=== PATIENT | female | born 1980 | race Two or more races ===

== ENCOUNTER 2017-06-05 17:06 | Emergency (ER) | payer OTHER ==
[~2017-06-05] VITALS: Ht 157.5 cm; Wt 64.1 kg
[2017-06-05 17:11] VITALS: BP 168/93
== END 2017-06-05 21:18 | disposition home or self-care (01) ==
LOC: ED 21:00
DX: S29.9XXA Unspecified injury of thorax, initial encounter (principal); S19.9XXA Unspecified injury of neck, initial encounter; E11.9 Type 2 diabetes mellitus without complications; V43.52XA Car driver injured in collision with other type car in traffic accident, initial encounter; Y93.89 Activity, other specified; Y92.410 Unspecified street and highway as the place of occurrence of the external cause; Y99.8 Other external cause status
CPT/HCPCS: 72072; 72125; 99284

== ENCOUNTER 2019-05-25 23:34 | Emergency (ER) | payer OTHER ==
[~2019-05-25] VITALS: Ht 160 cm; Wt 66.2 kg
[2019-05-26] MEDS ORDERED: ONDANSETRON 2MG/ML, 2ML ONE (00:15)
[2019-05-26] MEDS ORDERED: MORPHINE SULFATE 4 MG/ML, 1ML ONE (00:16)
--- NOTE | 2019-05-26 00:24 | NUR ---
pt here with daughter, pt speaks limited macedonian, has been having abd pain for 5 days. Has been taking ephedra diet pills from [place], states only took 2 5 days ago. States that she has been having N/V/D, asking po fluids, aware to remain NPO. Last po intake 1700.
--- NOTE | 2019-05-26 00:26 | NUR ---
Aware of need for urine, states went before going to triage. Side rails up times two, call hammond in reach and aware of use and to call before getting up as just rec narcotic pain meds.
[2019-05-26 00:27] LABS: BASOPHILS # (AUTO) 0.02 x10^3/uL (0-0.1); BASOPHILS % (AUTO) 0 % (0-1); EOSINOPHILS # (AUTO) 0.32 x10^3/uL (0-0.4); EOSINOPHILS % (AUTO) 4 % (1-7); LYMPHOCYTES # (AUTO) 1.71 x10^3/uL (1-3.4); LYMPHOCYTES % (AUTO) 19 % (22-44); MD NO; MEAN CORPUSCULAR HEMOGLOBIN 20.7 pg (27.0-34.8); MEAN CORPUSCULAR HGB CONC 30.3 g/dL (32.4-35.8); MEAN CORPUSCULAR VOLUME 68.2 fL (80-100); MEAN PLATELET VOLUME 8.8 fL (7.4-10.4); MONOCYTES # (AUTO) 0.79 x10^3/uL (0.2-0.8); MONOCYTES % (AUTO) 9 % (2-9); NEUTROPHILS # (AUTO) 6.03 x10^3/uL (1.8-6.8); NEUTROPHILS % (AUTO) 68 % (42-75); PLATELET COUNT 263 x10^3/uL (130-400); RED CELL DISTRIBUTION WIDTH 17.8 % (9.6-15.2)
[2019-05-26] MEDS ORDERED: MORPHINE SULFATE 4 MG/ML, 1ML IVPush ONE (00:30)
[2019-05-26] MEDS ORDERED: ONDANSETRON 2MG/ML, 2ML IVPush ONE (00:30)
[2019-05-26] MEDS ORDERED: SODIUM CHLORIDE FLUSH 10ML SYR IVF ONE (00:30)
[2019-05-26] MEDS ORDERED: KETOROLAC 30 MG/1 ML IVPush ONE (00:30)
[2019-05-26] MEDS ORDERED: SODIUM CHLORIDE 0.9% 1,000ML IVBOLUS ONE ×2 (00:30→01:30)
[2019-05-26 00:38] LABS: ALANINE AMINOTRANSFERASE 18 U/L (12-78); ALBUMIN 3.5 g/dL (3.4-5.0); ANION GAP 9 mmol/L (5-15); CALCIUM 8.9 mg/dL (8.5-10.1); CHLORIDE 110 mmol/L (98-107); CREATININE 1.79 mg/dL (0.55-1.02)
[2019-05-26 00:43] LABS: ALKALINE PHOSPHATASE 140 U/L (45-117); BILIRUBIN,TOTAL 0.4 mg/dL (0.2-1.0)
--- NOTE | 2019-05-26 00:49 | NUR ---
Pt reports moderate pain relief after medications. Await CT. Daughter remains at bedside.
[2019-05-26] MEDS ORDERED: KETOROLAC 30 MG/1 ML ONE (00:53)
--- NOTE | 2019-05-26 00:55 | NUR ---
Task rn: PT offered toradol. Refused at this time. Awaiting ct.
--- NOTE | 2019-05-26 01:07 | NUR ---
TO CT, 2ND LITRE INFUSING
[2019-05-26] MEDS ORDERED: OMNIPAQUE 350 MG/ML, 100ML BOTTLE ONE (01:16)
[2019-05-26 02:55] VITALS: BP 137/74
[2019-05-26 03:04] LABS: CULTURE INDICATED? YES; MICROSCOPIC INDICATED
[2019-05-26] MEDS ORDERED: CEFDINIR 300 MG CAPSULE ONE (03:37)
[2019-05-26] MEDS ORDERED: CEFDINIR 300 MG CAPSULE PO ONE (04:00)
--- NOTE | 2019-05-26 04:40 | NUR ---
pt d/c with d/c summary and scripts. pt verbalizes understanding of need for medications and home care instructions. pt ambulates to registration desk with steady gait for d/c home.
== END 2019-05-26 04:44 | disposition home or self-care (01) ==
LOC: ED 05-26 00:42
DX: N30.00 Acute cystitis without hematuria (principal); R11.2 Nausea with vomiting, unspecified
CPT/HCPCS: 36415; 74177; 80053; 81001; 83690; 84703; 85025; 87086; 96361; 96374; 96375; 99284; J1885; J2270; J2405; J7030; Q9967

== ENCOUNTER 2019-09-21 15:36 | Emergency (ER) | payer SELFPAY ==
[~2019-09-21] VITALS: Ht 157.5 cm; Wt 67.1 kg
--- NOTE | 2019-09-21 16:22 | NUR ---
[employer] OPERATOR: PT AMBULATORY WITH STEADY GAIT TO ROOM AT THIS TIME.
[2019-09-21] MEDS ORDERED: ONDANSETRON 2MG/ML, 2ML ONE (16:46)
--- NOTE | 2019-09-21 16:52 | NUR ---
Up to restroom to obtain UA
[2019-09-21 16:58] LABS: BASOPHILS # (AUTO) 0.02 x10^3/uL (0-0.1); BASOPHILS % (AUTO) 0 % (0-1); EOSINOPHILS # (AUTO) 0.16 x10^3/uL (0-0.4); EOSINOPHILS % (AUTO) 2 % (1-7); LYMPHOCYTES # (AUTO) 1.44 x10^3/uL (1-3.4); LYMPHOCYTES % (AUTO) 21 % (22-44); MD NO; MEAN CORPUSCULAR HEMOGLOBIN 20.8 pg (27.0-34.8); MEAN CORPUSCULAR HGB CONC 30.8 g/dL (32.4-35.8); MEAN CORPUSCULAR VOLUME 67.5 fL (80-100); MEAN PLATELET VOLUME 8.9 fL (7.4-10.4); MONOCYTES # (AUTO) 0.45 x10^3/uL (0.2-0.8); MONOCYTES % (AUTO) 7 % (2-9); NEUTROPHILS # (AUTO) 4.84 x10^3/uL (1.8-6.8); NEUTROPHILS % (AUTO) 70 % (42-75); PLATELET COUNT 376 x10^3/uL (130-400); RED BLOOD COUNT 4.16 x10^6/uL (3.82-5.3); RED CELL DISTRIBUTION WIDTH 17.1 % (9.6-15.2)
[2019-09-21] MEDS ORDERED: SODIUM CHLORIDE FLUSH 10ML SYR IVF ONE (17:00)
[2019-09-21] MEDS ORDERED: ONDANSETRON 2MG/ML, 2ML IVPush ONE (17:00)
[2019-09-21] MEDS ORDERED: SODIUM CHLORIDE 0.9% 1,000ML IVBOLUS ONE (17:00)
--- NOTE | 2019-09-21 17:00 | NUR ---
Ultrasound at bedside Clean catch us obtained-clarified need for straight cath with provider-provider want cath as patient on menses
[2019-09-21 17:07] LABS: ALANINE AMINOTRANSFERASE 50 U/L (12-78); ALBUMIN 3.1 g/dL (3.4-5.0); ANION GAP 9 mmol/L (5-15); CALCIUM 8.9 mg/dL (8.5-10.1); CHLORIDE 109 mmol/L (98-107); CREATININE 1.74 mg/dL (0.55-1.02)
[2019-09-21 17:09] LABS: ALKALINE PHOSPHATASE 180 U/L (45-117); BILIRUBIN,TOTAL 0.2 mg/dL (0.2-1.0); TOTAL PROTEIN 7.2 g/dL (6.4-8.2)
--- NOTE | 2019-09-21 17:40 | NUR ---
PIV PLACED-MEDICATED PER EMAR STRAIGHT CATH UA SENT UPDATED ON ESTIMATED POC VRI/FAMILY UTILIZED FOR TRANSLATION (HEBREW SPEAKER)
[2019-09-21 17:51] VITALS: BP 161/94
[2019-09-21 17:58] LABS: HCG UR SG 1.023 (1.003-1.030); MICROSCOPIC AUTO
[2019-09-21 18:07] LABS: CULTURE INDICATED? NO
--- NOTE | 2019-09-21 18:29 | NUR ---
1l ns bolus complete with reassessment patient reports nausea improved. All testing completed-placed up for recheck
--- NOTE | 2019-09-21 19:00 | NUR ---
REPORT TO JAZMIN KIRKPATRICK
--- NOTE | 2019-09-21 19:29 | NUR ---
Discharge instructions given. All questions and concerns addressed. Patient ambualtory with a steady gait. Belongings with patient.
== END 2019-09-21 19:30 | disposition home or self-care (01) ==
LOC: ED 17:45
DX: K80.00 Calculus of gallbladder with acute cholecystitis without obstruction (principal); E11.9 Type 2 diabetes mellitus without complications
CPT/HCPCS: 36415; 76700; 80053; 81001; 81025; 83690; 85025; 93005; 96374; 99285; J2405; J7030